=== PATIENT | male | born 1995 | race Caucasian/White ===

== ENCOUNTER 2020-04-15 20:30 | Emergency (ER) | payer OTHER ==
[~2020-04-15] VITALS: Ht 190.5 cm; Wt 75.0 kg
[2020-04-15] MEDS ORDERED: AMOXICILLIN 8751 TAB PO (21:34)
[2020-04-15 21:50] VITALS: BP 127/76; PULSE 68; TEMP 98.2
== END 2020-04-15 21:50 | disposition home or self-care (01) ==
LOC: COL.ER 20:30
DX: S61.257A Open bite of left little finger without damage to nail, initial encounter (principal); Z23 Encounter for immunization; W54.0XXA Bitten by dog, initial encounter; Y93.K1 Activity, walking an animal